=== PATIENT | male | born 1990 | race Caucasian/White ===

== ENCOUNTER 2017-04-29 03:01 | Emergency (ER) | END 2017-04-29 07:17 | disposition home or self-care (01) ==

== ENCOUNTER 2018-09-23 06:17 | Emergency (ER) | payer SELFPAY ==
[~2018-09-23] VITALS: Ht 180.3 cm; Wt 79.2 kg
[~2018-09-23 06:17] MED LIST: CIPR500T4 PO
[2018-09-23 06:20] VITALS: BP 122/79; PULSE 97; RESP 19; Ht 180.3 cm; Wt 79.2 kg
--- NOTE | 2018-09-23 06:45 | ERD ---
ER Documentation Chief Complaint Chief Complaint bib self, cc: chest pain x 1 hour, HPI 28-year-old male otherwise healthy presents complaining of chest pain that began yesterday. He states yesterday resolved but then this morning he woke up to chest pain. It is located in the middle of his chest and nonradiating. It is a throbbing pain. He has had this pain before he states. He states his pain is worse when he pushes on his chest or when he moves or takes a deep breath. He has no cardiac medical history. ROS All systems reviewed and are negative except as per history of present illness. Medications Home Meds Active Scripts Ciprofloxacin Hcl* (Ciprofloxacin Hcl*) 500 Mg Tablet, 500 MG PO BID for 7 Days, TAB Prov:DENA GOLDSTEIN PA-C 04/29/17 Allergies Allergies: Coded Allergies: No Known Drug Allergies (Verified Allergy, Unknown, 04/29/17) PMhx/Soc History of Surgery: No Anesthesia Reaction: No Hx Neurological Disorder: No Hx Respiratory Disorders: No Hx Cardiac Disorders: No Hx Psychiatric Problems: No Hx Miscellaneous Medical Probl: No Hx Alcohol Use: No Hx Substance Use: No Hx Tobacco Use: Yes FmHx Family History: No diabetes Physical Exam Vitals Vital Signs Date Temp Pulse Resp B/P (MAP) Pulse Ox O2 O2 Flow FiO2 Time Delivery Rate 09/23/18 98.7 97 19 122/79 100 06:20 (93) Physical Exam Const: No acute distress Head: Atraumatic Eyes: Normal Conjunctiva ENT: Normal External Ears, Nose and Mouth. Neck: Full range of motion. No meningismus. Resp: Clear to auscultation bilaterally Cardio: Regular rate and rhythm, no murmurs Results 24 hrs Current Medications Medications Dose Sig/Danie Start Time Status Last (Trade) Ordered Route PRN Stop Time Admin Dose Reason Admin Ibuprofen 800 mg ONCE ONCE 09/23/18 DC 09/23/18 (Motrin) PO 07:00 09/23/18 06:45 07:01 Procedures/MDM 28-year-old male with chest pain. The differential diagnosis includes but is not limited to acute coronary syndrome acute myocardial infarction, pericardi tis, pulmonary embolism, aortic dissection, pneumonia, pleural effusion, pneumothorax, GERD, chest wall pain, and others. Patient's EKG is normal, no evidence of ST elevation or acute ischemic changes. Chest x-ray is negative. Patient is young and lacks cardiac risk factors. Likely musculoskeletal. Should take Tylenol or Motrin at home. Patient counseled regarding my diagnost ic impression and care plan. Prior to discharge all questions answered. Pt agrees with treatment plan and understands strict return precautions. Pt is instructed to follow up with primary care provider within 24-48 hours. Precautionary instructions provided including instructions to return to the ER if not improving or for any worsening or changing symptoms or concerns. Departure Diagnosis: Primary Impression: Chest pain Condition: Stable GIDEON [facility] PA-C Sep 23, 2018 06:45
[2018-09-23] MEDS ORDERED: IBUPROFEN 800 MG TAB PO ONE (07:00)
== END 2018-09-23 07:48 | disposition home or self-care (01) ==
LOC: FTE 06:17
DX: R07.9 Chest pain, unspecified (principal)
CPT/HCPCS: 71045; 93005